=== PATIENT | female | born 1960 | race Caucasian/White ===

== ENCOUNTER → 2019-04-17 | Outpatient (CLI) | payer OTHER | LOC: MAMMO 09:47 | PROVIDERS: ATTEND Family Medicine | DX: Z12.31 Encounter for screening mammogram for malignant neoplasm of breast (principal); Z78.0 Asymptomatic menopausal state; M89.9 Disorder of bone, unspecified | CPT/HCPCS: 77067; 77080 ==

== ENCOUNTER → 2019-05-10 | Outpatient (CLI) | payer OTHER ==
--- NOTE | 2019-05-13 08:40 | Diagnostic Imaging Report ---
#[id number] - USBRELIMLT ULTRASOUND OF THE LEFT BREAST : 05/10/2019 Comparison is made to exam dated: 05/10/2019 mammogram - [facility]. Real-time ultrasound was performed on the left breast. There is a benign 1 cm oval cyst with a smooth internal wall in the left breast at 2 o'clock middle depth 2 cm from the nipple. This oval cyst is anechoic. This correlates with mammography findings. IMPRESSION: BENIGN There is no sonographic evidence of malignancy. The 1 cm oval cyst in the left breast is benign. A 1 year screening mammogram is recommended. BARBARA LUNDBERG M.D. ct/:05/10/2019 14:44:03 [employer]riculum And Instruction Director: Victoria Blanco RDCA, [facility] letter sent: Normal Exam Ultrasound BI-RADS: 2 Benign
--- NOTE | 2019-05-13 08:40 | Diagnostic Imaging Report ---
#[id number] - MGDXLT #UNILATERAL LEFT DIGITAL DIAGNOSTIC MAMMOGRAM WITH SPOT COMPRESSION: 05/10/2019 Comparison is made to exams dated: 04/17/2019 mammogram - [facility] and 01/12/2018 mammogram - [facility]. Current study contains 3 films. There are scattered fibroglandular elements in the left breast. There is a benign 1.1 cm oval cyst with a circumscribed margin in the left breast at 2 o'clock anterior depth. This correlates with ultrasound findings. No other significant masses or calcifications are seen in the breast. IMPRESSION: BENIGN See the report for ultrasound performed the same day for additional details. There is no mammographic evidence of malignancy. A 1 year screening mammogram is recommended. The findings were discussed with the patient. The patient will be notified by letter of the results. BARBARA LUNDBERG M.D. ct/:05/10/2019 14:41:42 Flexible Nanny: Nerissa SOTO(R)(Rere), [facility] letter sent: Normal Exam Mammogram BI-RADS: 2 Benign
== END ==
LOC: MAMMO 13:36
PROVIDERS: ATTEND Family Medicine
DX: R92.8 Other abnormal and inconclusive findings on diagnostic imaging of breast (principal)

== ENCOUNTER → 2020-05-14 | Outpatient (CLI) | payer BC ==
--- NOTE | 2020-05-14 12:54 | Diagnostic Imaging Report ---
EXAM: HIP LEFT, 2 views DATE: 05/14/2020 11:55 AM INDICATION: Left hip pain COMPARISON: None FINDINGS: There is no evidence for acute fracture or dislocation. Bony mineralization is within normal limits. No focal lytic or blastic abnormality is identified. There is moderate femoro-acetabular joint space narrowing with associated subchondral sclerosis. The surrounding soft tissues are unremarkable without evidence for radiopaque foreign body. The visualized intrapelvic contents are unremarkable. IMPRESSION: No acute radiographic abnormality identified within the left hip. Degenerative changes as above. Signed by: Dr. Jerry Smiley MD on 05/14/2020 12:50 PM
== END ==
LOC: RAD 11:45
PROVIDERS: ATTEND Family Medicine
DX: M25.552 Pain in left hip (principal)

== ENCOUNTER → 2020-06-17 | Outpatient (CLI) | payer BC | LOC: MAMMO 10:46 | PROVIDERS: ATTEND Family Medicine | DX: Z12.31 Encounter for screening mammogram for malignant neoplasm of breast (principal) | CPT/HCPCS: 77067 ==

== ENCOUNTER → 2021-08-11 | Outpatient (CLI) | payer BC | LOC: MAMMO 10:49 | PROVIDERS: ATTEND Family Medicine | DX: Z12.31 Encounter for screening mammogram for malignant neoplasm of breast (principal) | CPT/HCPCS: 77067 ==

== ENCOUNTER → 2021-08-26 | Outpatient (CLI) | payer BC | LOC: MAMMO 08:44 | PROVIDERS: ATTEND Family Medicine | DX: R92.8 Other abnormal and inconclusive findings on diagnostic imaging of breast (principal) ==

== ENCOUNTER → 2024-08-20 | Outpatient (REF) | payer MEDICARE | LOC: MAMMO 12:11 | PROVIDERS: ATTEND Internal Medicine | DX: Z12.31 Encounter for screening mammogram for malignant neoplasm of breast (principal) | CPT/HCPCS: 77067 ==

== ENCOUNTER → 2025-08-29 | Outpatient (REF) | payer MEDICARE | LOC: MAMMO 12:35 | PROVIDERS: ATTEND Internal Medicine | DX: Z12.31 Encounter for screening mammogram for malignant neoplasm of breast (principal) | CPT/HCPCS: 77067 ==